=== PATIENT | female | born 1995 | race Two or more races ===

== ENCOUNTER 2019-07-11 21:08 | Emergency (ER) | payer SELFPAY ==
[~2019-07-11] VITALS: Ht 167.6 cm; Wt 74.4 kg
[~2019-07-11 21:08] MED LIST: NOCURR
[2019-07-11] MEDS ORDERED: KETOROLAC TROMETHAMINE 60 MG/2 ML VIAL IM ONE ×2 (22:30)
[2019-07-11 23:31] VITALS: BP 118/71
== END 2019-07-11 23:42 | disposition home or self-care (01) ==
LOC: EMS 21:08
DX: S63.501A Unspecified sprain of right wrist, initial encounter (principal); Z88.0 Allergy status to penicillin; Y04.0XXA Assault by unarmed brawl or fight, initial encounter; Y93.89 Activity, other specified; Y92.89 Other specified places as the place of occurrence of the external cause; Y99.8 Other external cause status
CPT/HCPCS: 29125; 73090; 96372; 99283; J1885